=== PATIENT | male | born 2000 | race Hispanic/Latino ===

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

== ENCOUNTER 2024-05-30 12:23 | Emergency (ER) | payer BC, MEDICAID, OTHER ==
[~2024-05-30] VITALS: Ht 182.9 cm; Wt 77.1 kg
[2024-05-30 12:25] VITALS: O2SAT 97
[2024-05-30 12:27] VITALS: BP 135/88; PULSE 75; RESP 16; TEMP 98.2
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
[2024-05-30] MEDS: ibuPROFEN 800 MG TAB PO ONE (12:54)
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
[2024-05-30] MEDS ORDERED: IBUP-2077 PO (13:23)
== END 2024-05-30 13:41 | disposition home or self-care (01) ==
LOC: EDH 12:23
DX: S20.212A Contusion of left front wall of thorax, initial encounter (principal); X58.XXXA Exposure to other specified factors, initial encounter; Y93.89 Activity, other specified; Y92.89 Other specified places as the place of occurrence of the external cause; Y99.8 Other external cause status
CPT/HCPCS: 71045; 99283

== ENCOUNTER 2024-09-20 08:22 | Emergency (ER) | payer OTHER, BC ==
[~2024-09-20] VITALS: Ht 180.3 cm; Wt 81.6 kg
[~2024-09-20 08:22] MED LIST: IBUP-2077 PO
[2024-09-20] MEDS ORDERED: METH-662 PO (08:31)
[2024-09-20] MEDS ORDERED: NAPR-1196 PO (08:31)
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
[2024-09-20] MEDS: ketOROlac 15MG/ML VIAL (15MG/ML) IM ONE (08:37)
[2024-09-20 08:41] VITALS: BP 129/71; PULSE 65; RESP 16; TEMP 98.5; O2SAT 98
--- NOTE | 2024-09-20 08:45 | NUR ---
REVIEWED DC WITH PROVIDER. DC ORDER CONFIRMED
== END 2024-09-20 08:56 | disposition home or self-care (01) ==
LOC: EDH 08:22
DX: S39.012A Strain of muscle, fascia and tendon of lower back, initial encounter (principal); V89.2XXA Person injured in unspecified motor-vehicle accident, traffic, initial encounter; Y93.89 Activity, other specified; Y92.89 Other specified places as the place of occurrence of the external cause; Y99.8 Other external cause status
CPT/HCPCS: 99283; 96372; J1885